=== PATIENT | male | born 1995 | race Caucasian/White ===

== ENCOUNTER 2018-04-20 22:00 | Emergency (ER) | payer SELFPAY ==
[~2018-04-20] VITALS: Ht 170.2 cm; Wt 68.2 kg
[2018-04-20] MEDS ORDERED: LORazepam 2 MG/ML VIAL IM ONE (22:30)
[2018-04-20] MEDS ORDERED: HALOPERIDOL LACTATE 5 MG/ML VIAL IM ONE (22:30)
[2018-04-20] MEDS ORDERED: DiphenhydrAMINE HCL 50 MG/ML VIAL IM ONE (22:30)
[2018-04-20 23:38] LABS: BASOPHILS % (AUTO) 0.8 % (0.0-2.0); EOSINOPHILS % (AUTO) 1.2 % (1.0-6.0); HEMATOCRIT 40.7 % (41-53); HEMOGLOBIN 13.8 g/dL (13.5-17.5); LYMPHOCYTES # (AUTO) 1.9 K/uL (1.0-4.8); LYMPHOCYTES % (AUTO) 21.7 % (22.0-44.0); MEAN CORPUSCULAR HEMOGLOBIN 29.1 pg (26.0-34.0); MEAN CORPUSCULAR VOLUME 86 fL (80-100); MONOCYTES # (AUTO) 0.6 K/uL (0.1-1.0); MONOCYTES % (AUTO) 6.6 % (2.0-9.0); NEUTROPHILS # (AUTO) 6.1 K/uL (1.8-7.7); NEUTROPHILS % (AUTO) 69.7 % (40.0-70.0); PLATELET COUNT (AUTO) 246 K/uL (150-450); RED BLOOD CELL COUNT(AUTO) 4.74 MIL/uL (4.50-5.90); RED CELL DISTRIBUTION WIDTH 13.1 % (11.5-14.5)
[2018-04-20 23:49] LABS: ANION GAP 12 mmol/L (8-16); CALCIUM, TOTAL 9.1 mg/dL (8.8-10.5); CARBON DIOXIDE 27 mmol/L (22-29); CHLORIDE 104 mmol/L (98-107); CREATININE 0.91 mg/dL (0.60-1.30); GLOMERULAR FILTR. RATE CALC > 60 mL/min (>60); GLUCOSE,RANDOM 107 mg/dL (70-110); POTASSIUM 3.9 mmol/L (3.5-5.1); SODIUM SERUM 143 mmol/L (136-145); UREA NITROGEN, BLOOD 9 mg/dL (7-18)
[2018-04-20 23:55] LABS: ALANINE AMINOTRANSFERASE 43 U/L (12-78); ALBUMIN 4.1 g/dL (3.4-5.0); ALKALINE PHOSPHATASE 80 U/L (46-116); ASPARTATE AMINOTRANSFERASE 32 U/L (15-37); BILIRUBIN,TOTAL 0.2 mg/dL (0.1-1.0); TOTAL PROTEIN, SERUM 7.6 g/dL (6.4-8.2)
[2018-04-21] MEDS ORDERED: LIDOCAINE 2% 5 ML JELLY TP ONE (05:15)
[2018-04-21 05:44] VITALS: BP 137/75
[2018-04-21] MEDS ORDERED: BACITRACIN 0.9 GM PACKET OINTMENT TP ONE (05:45)
[2018-04-21] MEDS ORDERED: IBUPROFEN 600 MG TABLET PO ONE (05:45)
== END 2018-04-21 05:54 | disposition home or self-care (01) ==
LOC: EMS 22:01
DX: S61.217A Laceration without foreign body of left little finger without damage to nail, initial encounter (principal); V43.62XA Car passenger injured in collision with other type car in traffic accident, initial encounter; Y93.89 Activity, other specified; Y92.89 Other specified places as the place of occurrence of the external cause; Y99.8 Other external cause status
CPT/HCPCS: 12001; 36415; 80053; 85025; 96372; 99283; G0480; J1200; J1630; J2060

== ENCOUNTER 2024-10-19 10:20 | Inpatient (IN) | payer OTHER ==
[~2024-10-19] VITALS: Ht 172.7 cm; Wt 77.5 kg
[~2024-10-19 10:20] MED LIST: SERT-158 PO
[2024-10-19 10:59] LABS: CALCIUM, TOTAL 9.2 mg/dL (8.8-10.5); CREATININE 0.80 mg/dL (0.60-1.30); GLOMERULAR FILTR. RATE CALC > 60 mL/min (>60); GLUCOSE,RANDOM 87 mg/dL (70-110); SODIUM SERUM 142 mmol/L (136-145); UREA NITROGEN, BLOOD 10 mg/dL (7-18)
[2024-10-19 11:02] LABS: PLATELET COUNT (AUTO) 311 K/uL (150-450); RED BLOOD CELL COUNT(AUTO) 4.96 MIL/uL (4.50-5.90); RED CELL DISTRIBUTION WIDTH 13.3 % (11.5-14.5); WHITE BLOOD COUNT (AUTO) 7.5 K/uL (4.5-11.0)
[2024-10-19 11:04] LABS: ASPARTATE AMINOTRANSFERASE 30 U/L (15-37); TOTAL PROTEIN, SERUM 7.2 g/dL (6.4-8.2)
[2024-10-19 11:19] LABS: ALCOHOL, BLOOD (SERUM) < 3 mg/dL (0-10)
[2024-10-19] MEDS ORDERED: MAGNESIUM HYDROXIDE SUSPENSION 30 ML UDCUP PO PRN (13:00)
[2024-10-19] MEDS ORDERED: ACETAMINOPHEN 325 MG TABLET PO PRN (13:00)
[2024-10-19 20:45] LABS: APPEARANCE,URINE CLEAR (CLEAR); GLUCOSE, URINE (UA) NEGATIVE (NEGATIVE); LEUKOCYTE ESTERASE ,URINE NEGATIVE (NEGATIVE); NITRATE,URINE NEGATIVE (NEGATIVE); OCCULT BLOOD,URINE NEGATIVE (NEGATIVE); SPECIFIC GRAVITIY, URINE 1.024 (1.003-1.030)
[2024-10-19 21:00] VITALS: BP 123/61; PULSE 62; RESP 18; TEMP 98.1; O2SAT 100
[2024-10-19 21:17] LABS: ALCOHOL, URINE DRUG SCREEN NEGATIVE (NEGATIVE); AMPHET/METH SCREEN,URINE NEGATIVE (NEGATIVE); BARBITURATE SCREEN, URINE NEGATIVE (NEGATIVE); CANNABINOID SCREEN,URINE NEGATIVE (NEGATIVE); COCAINE SCREEN,URINE NEGATIVE (NEGATIVE); METHADONE SCREEN, URINE NEGATIVE (NEGATIVE)
[2024-10-19 21:34] LABS: PH,URINE DRUG SCREEN 6.5 (5.0-8.0)
[2024-10-20 00:13] VITALS: BP 117/71; PULSE 57; RESP 18; TEMP 97.9; O2SAT 97
[2024-10-20 04:11] VITALS: BP 108/75; PULSE 55; RESP 18; TEMP 98.1; O2SAT 97
[2024-10-20 06:50] LABS: CALCIUM, TOTAL 9.2 mg/dL (8.8-10.5); CREATININE 0.81 mg/dL (0.60-1.30); GLOMERULAR FILTR. RATE CALC > 60 mL/min (>60); GLUCOSE,RANDOM 86 mg/dL (70-110); SODIUM SERUM 142 mmol/L (136-145); UREA NITROGEN, BLOOD 11 mg/dL (7-18)
[2024-10-20 06:52] LABS: PLATELET COUNT (AUTO) 312 K/uL (150-450); RED BLOOD CELL COUNT(AUTO) 4.90 MIL/uL (4.50-5.90); RED CELL DISTRIBUTION WIDTH 13.5 % (11.5-14.5); WHITE BLOOD COUNT (AUTO) 7.5 K/uL (4.5-11.0)
[2024-10-20] MEDS ORDERED: 0.9% SODIUM CHLORIDE 5 ML NEB SOLUTION NEB ONE (07:47)
[2024-10-20 08:37] VITALS: BP 105/69; PULSE 69; RESP 19; TEMP 97.7; O2SAT 97
[2024-10-20] MEDS: FAMOTIDINE 20 MG TABLET PO SCH (09:00)
[2024-10-20 11:59] VITALS: BP 114/52; PULSE 61; RESP 19; TEMP 98.1; O2SAT 98
[2024-10-20 16:17] VITALS: BP 115/65; PULSE 61; RESP 19; TEMP 97.9; O2SAT 97
[2024-10-20 20:00] VITALS: BP 109/63; PULSE 63; RESP 18; TEMP 97.9; O2SAT 98
[2024-10-20] MEDS ORDERED: SODIUM CHLORIDE 3% 15 ML NEB SOLUTION NEB ONE (21:47)
[2024-10-21] VITALS (7 sets, daily range): BP systolic 110–125; BP diastolic 60–75; PULSE 58–71; RESP 16–18; TEMP 97.5–98.4; O2SAT 96–100
[2024-10-21 23:32] LABS: MTB PCR w/Rif. Resistance-SPUT NOT DETECTED (Not Detectd)
[2024-10-22 03:24] VITALS: BP 117/64; PULSE 65; RESP 16; TEMP 97.5; O2SAT 99
[2024-10-22 08:24] VITALS: BP 107/64; PULSE 61; RESP 18; TEMP 98; O2SAT 97
[2024-10-22 12:34] VITALS: BP 114/69; PULSE 62; RESP 18; TEMP 98.4; O2SAT 98
[2024-10-22 13:43] LABS: MTB PCR w/Rif. Resistance-SPUT NOT DETECTED (Not Detectd)
[2024-10-22 16:08] VITALS: BP 119/69; PULSE 61; RESP 18; TEMP 98.1; O2SAT 97
[2024-10-22 18:07] LABS: QUANTIFERON+, Nil Value 0.30 IU/mL; QUANTIFERON+,Mitogen Value >10.00 IU/mL; QUANTIFERON+,TB1 Antigen Value 0.28 IU/mL; QUANTIFERON+,TB2 Antigen Value 0.36 IU/mL; QUANTIFERON, TB GOLD PLUS Negative (Negative)
[2024-10-22 20:38] VITALS: BP 104/70; PULSE 57; RESP 19; TEMP 98.2; O2SAT 96
[2024-10-23 00:18] VITALS: BP 122/68; PULSE 57; RESP 19; TEMP 97.9; O2SAT 99
[2024-10-23 04:35] VITALS: BP 114/60; PULSE 55; RESP 18; TEMP 98; O2SAT 97
[2024-10-23 07:43] VITALS: BP 112/63; PULSE 58; RESP 18; TEMP 98; O2SAT 98
[2024-10-23 11:56] VITALS: BP 127/57; PULSE 73; RESP 18; TEMP 98.1; O2SAT 98
[2024-10-23 15:35] VITALS: BP 118/69; PULSE 61; RESP 18; TEMP 97.7; O2SAT 97
[2024-10-23 20:00] VITALS: BP 128/65; PULSE 60; RESP 18; TEMP 98.1; O2SAT 98
[2024-10-23] MEDS: ZOLPIDEM TARTRATE 5 MG TABLET PO PRN (21:39)
[2024-10-24 00:08] VITALS: BP 122/70; PULSE 58; RESP 18; TEMP 97.9; O2SAT 97
[2024-10-24 04:00] VITALS: BP 124/67; PULSE 63; RESP 18; TEMP 97.7; O2SAT 99
[2024-10-24 06:39] LABS: PLATELET COUNT (AUTO) 338 K/uL (150-450); RED BLOOD CELL COUNT(AUTO) 5.17 MIL/uL (4.50-5.90); RED CELL DISTRIBUTION WIDTH 13.3 % (11.5-14.5); WHITE BLOOD COUNT (AUTO) 9.5 K/uL (4.5-11.0)
[2024-10-24 06:49] LABS: CALCIUM, TOTAL 9.4 mg/dL (8.8-10.5); CREATININE 0.92 mg/dL (0.60-1.30); GLOMERULAR FILTR. RATE CALC > 60 mL/min (>60); GLUCOSE,RANDOM 89 mg/dL (70-110); SODIUM SERUM 140 mmol/L (136-145); UREA NITROGEN, BLOOD 13 mg/dL (7-18)
[2024-10-24 08:28] VITALS: BP 120/80; PULSE 69; RESP 18; TEMP 98.2; O2SAT 98
[2024-10-24 12:14] VITALS: BP 122/58; PULSE 56; RESP 18; TEMP 98.2; O2SAT 97
== END 2024-10-24 14:10 | DRG 607 ==
LOC: EMS 10:21 → EDH 13:03 → 5S 20:22
PROVIDERS: ADMIT Internal Medicine; ATTEND Internal Medicine
DX: R61 Generalized hyperhidrosis (principal); F11.23 Opioid dependence with withdrawal; F41.1 Generalized anxiety disorder; F32.A Depression, unspecified; F10.90 Alcohol use, unspecified, uncomplicated; Y90.0 Blood alcohol level of less than 20 mg/100 ml; Z78.9 Other specified health status
CPT/HCPCS: 71046; 80048; 80076; 80307; 81003; 85025; 86480; 87015; 87206; 87389; 87556; 94640; 99285; G0480; 36415-L1; 36415-TC